=== PATIENT | male | born 1970 | race Caucasian/White ===

== ENCOUNTER → 2017-01-23 | Outpatient (CLI) | payer MEDICARE, OTHER ==
--- NOTE | 2017-01-23 14:59 | MR ---
EXAMINATION TYPE: MR cervical spine wo/w con DATE OF EXAM: 01/23/2017 2:42 PM COMPARISON: NONE HISTORY: other spondylosis w/radiculopathy CONTRAST: The patient was injected with 15 mL intravenous MultiHance gadolinium contrast. Multiplanar MultiSpin echo imaging of the cervical spine was performed. There is fusion hardware beginning at C3 level extending to T2 level. There is reversal of normal cer vical curvature identified. Overall appearance is stable. C2-C3: Fusion changes noted. 3 mm anterolisthesis of C2 on C3. Distortion and thinning of the cervica l spinal cord at the C2 level with the increased signal noted within the cervical spinal cord compati ble with myelopathy. No disc bulge/herniation or protrusion. No Canal stenosis. Foramina are patent bilaterally. C3-C4: Fusion changes noted. Normal alignment. No evidence for recurrent or residual disc herniation or protrusion. Right foraminal encroachment. C4-C5: Fusion changes noted. Normal alignment. No evidence for recurrent or residual disc herniation or protrusion. Bilateral foraminal encroachment noted. C5-C6: Fusion changes noted. Normal alignment. No evidence for recurrent or residual disc herniation or protrusion. Bilateral foraminal encroachment noted. C6-C7:Fusion changes noted. Normal alignment. No evidence for recurrent or residual disc herniation o r protrusion. Bilateral foraminal encroachment noted. C7-T1: Fusion changes noted. Normal alignment. No evidence for recurrent or residual disc herniation or protrusion. Bilateral foraminal encroachment noted. No cervical spine fracture. No pathologic enhancement. IMPRESSION: 1. Extensive postsurgical fusion and hardware extending from C3 through T2 with exaggerated cervical kyphosis. 2. Thinning of the cervical spinal cord at the C2 C2-3 level with increased signal noted within the s mick cord compatible with myelopathy.
== END | disposition home or self-care (01) ==
LOC: RADMRIMAIN 13:42
PROVIDERS: ATTEND Family Medicine
DX: M40.292 Other kyphosis, cervical region (principal); G95.89 Other specified diseases of spinal cord; Z98.1 Arthrodesis status
CPT/HCPCS: 72156; A9577

== ENCOUNTER → 2017-02-27 | Outpatient (CLI) | payer MEDICARE, OTHER ==
--- NOTE | 2017-02-27 20:25 | CT ---
EXAMINATION TYPE: CT cervical spine wo con DATE OF EXAM: 02/27/2017 COMPARISON: 05/23/2013 HISTORY: Severe neck pain with tingling and numbness in bilateral arms from the elbow down CT DLP: 770 mGycm Automated exposure control for dose reduction was used. TECHNIQUE: CT scan of the cervical spine is obtained without contrast, axial images are obtained, sa gittal and coronal reformatted images are also reviewed. FINDINGS: There is a plate with screws fusing anteriorly the cervical spine and upper thoracic spine from C3 to T2 vertebra. There is an upper thoracic kyphotic deformity. There is approximate 5 mm anterior sublu xation of C2 in relation to C3. There is mild multilevel facet arthropathy in the cervical spine. The re is slight loss of height of C2 vertebral body of 20%. The C6 vertebral body is not well defined. T here is no evidence of a paraspinal mass. The posterior elements appear intact. There is a spinal michael nosis at the C1 level that measures 7 mm. This relates to the see to 3 subluxation deformity and the compensatory extension at the craniocervical junction. The canal measures approximately 10 mm on the old exam. The spinal canal is difficult to visualize because of the metal artifact from the multileve l fusion surgery. IMPRESSION: There is mild anterior subluxation of C2 in relation to C3 with a kyphotic deformity that has progressed significantly compared to old CT scan. There is resultant spinal stenosis at C1 level . The canal has decreased from 10 mm to 7 mm. There is more flexion deformity at the C2-3 level yaz red to old exam. There is stable mild compression of the T2 vertebral body.
== END | disposition home or self-care (01) ==
LOC: RADCTMAIN 18:36
PROVIDERS: ATTEND Neurological Surgery
DX: M48.02 Spinal stenosis, cervical region (principal); S13.130A Subluxation of C2/C3 cervical vertebrae, initial encounter; M43.8X2 Other specified deforming dorsopathies, cervical region; M40.202 Unspecified kyphosis, cervical region; Z98.890 Other specified postprocedural states
CPT/HCPCS: 72125

== ENCOUNTER 2018-03-06 14:52 | Emergency (ER) | payer MEDICARE, OTHER ==
[2018-03-06 14:57] VITALS: BP 123/88; PULSE 82; RESP 18; TEMP 97.9
[2018-03-06] MEDS ORDERED: KETOROLAC 30 MG/ML 1 ML VIAL IM STA (16:09)
--- NOTE | 2018-03-06 16:22 | XR ---
EXAMINATION TYPE: XR cervical spine comp DATE OF EXAM: 03/06/2018 TECHNIQUE: Frontal, lateral, oblique, swimmers, and open mouth view of the cervical spine are obtaine d. HISTORY: Chronic neck pain with increased pain after lifting injury today. COMPARISON: None FINDINGS: There is reversal of the usual cervical lordosis with anterior fusion from C3 through appro ximately T1. There is osseous fusion of posterior elements. No acute fractures identified. There is m ild osseous demineralization of the cervical spine. Neural foramen appear grossly patent on the left with at least moderate neural foraminal narrowing at C3-C4, C4-C5, and C5-C6 on the right. The pre-ve rtebral soft tissue appears within normal limits. The C1-C2 articulation is within normal limits on the open mouth view. IMPRESSION: No acute fracture or dislocation is seen in the cervical spine. Reversal usual cervical lordosis, osseous demineralization, postsurgical changes, and osseous fusion of the cervical spine wi th multilevel right neural foraminal narrowing.
--- NOTE | 2018-03-06 16:45 | ED ---
General Adult HPI - General Chief complaint: Neck Pain/Injury Stated complaint: neck pain Time Seen by Provider: 03/06/18 15:34 Source: patient, RN notes reviewed Mode of arrival: ambulatory Limitations: no limitations - History of Present Illness Initial comments: 47-year-old male presents to the emergency department for a chief complaint of neck pain. Patient has chronic neck pain due to multiple surgeries but pain has worsened in the past 3 weeks. No acute injury. Patient states in the past hardware has been out of place and he would like an x-ray to make sure that it is in place. Patient states he is supposed to get another surgery but cannot quit smoking in the surgeon won't do it until he is no longer smoking. Patient states he takes Percocet for pain. Patient has no other complaints at this time including shortness of breath, chest pain, abdominal pain, nausea or vomiting, headache, or visual changes. - Related Data Home Medications Medication Instructions Recorded Confirmed Dextroamphetamine/Amphetamine 30 mg PO BID 09/28/14 03/30/16 [Adderall] Gabapentin [Neurontin] 300 mg PO TID 09/28/14 03/30/16 ALPRAZolam [Xanax] 0.5 mg PO Q8HR 11/24/14 03/30/16 Adefovir Dipivoxil [Hepsera] 10 mg PO DAILY 11/24/14 03/30/16 Brimonidine Tartrate [Alphagan P 1 drops RIGHT EYE Q8H 11/24/14 03/30/16 0.1% Ophth Soln] Dorzolamide 2% [Trusopt] 1 drops RIGHT EYE BID 11/24/14 03/30/16 Timolol Maleate/Pf [Timoptic 0.25% 1 each OP DAILY 11/24/14 03/30/16 Ocudose Drop] Citalopram Hydrobromide [CeleXA] 20 mg PO DAILY 01/19/15 03/30/16 oxyCODONE HCL 1 tab PO QID 03/30/16 03/30/16 Allergies Allergy/AdvReac Type Severity Reaction Status Date / Time cefaclor [From Ceclor] Allergy Swelling Verified 03/06/18 14:57 morphine Allergy Rash/Hives Verified 03/06/18 14:57 Review of Systems ROS Statement: Those systems with pertinent positive or pertinent negative responses have been documented in the HPI. ROS Other: All systems not noted in ROS Statement are negative. Past Medical History Past Medical History: No Reported History Additional Past Medical History / Comment(s): chronic neck and back pain hep b History of Any Multi-Drug Resistant Organisms: None Reported Past Surgical History: Back Surgery Additional Past Surgical History / Comment(s): neck surg x2, eye surgery, Past Psychological History: ADD/ADHD, Anxiety, Depression Smoking Status: Current every day smoker Past Alcohol Use History: Rare Past Drug Use History: Marijuana General Exam Limitations: no limitations General appearance: alert, in no apparent distress Head exam: Present: atraumatic, normocephalic, normal inspection Eye exam: Present: normal appearance ENT exam: Present: normal exam, normal oropharynx, mucous membranes moist, TM's normal bilaterally, normal external ear exam Neck exam: Present: tenderness (Mild tenderness to the cervical spine). Absent : meningismus, full ROM (Patient has limited range of motion of the neck. Patient has about 10 of flexion and extension. Patient has about 10 of rotation to the left and 10 of rotation to the right. ), lymphadenopathy, thyromegaly Respiratory exam: Present: normal lung sounds bilaterally. Absent: respiratory distress, wheezes, rales, rhonchi, stridor Cardiovascular Exam: Present: regular rate, normal rhythm, normal heart sounds. Absent: systolic murmur, diastolic murmur, rubs, gallop, clicks Back exam: Present: normal inspection. Absent: tenderness Neurological exam: Present: alert, oriented X3, CN II-XII intact Course Vital Signs 03/06/18 14:55 Temperature 97.9 F Pulse Rate 82 Respiratory 18 Rate Blood Pressure 123/88 O2 Sat by Pulse 99 Oximetry Medical Decision Making - Medical Decision Making 47-year-old male sent to the emergency department for a chief complaint of neck pain. Pain is chronic but is exacerbated in the past 3 weeks. Patient denies any acute injuries. Patient states he does need another surgery but the surgeon will not do it until he quit smoking which he is having difficulty doing. Patient takes Percocet for pain. Patient denies pain in the remainder of his back. On exam patient does have limited range of motion of the neck. Neuro exam intact. Patient has mild tenderness to the cervical spine. No acute fracture or dislocation is seen in the cervical spine. Reversal of the usual cervical lordosis, osseous demineralization, post cervical changes, and osseous fusion of the cervical spine with multilevel right neural foraminal narrowing. Patient was educated that his hardware is in place and he will need to follow- up with the orthopedic surgeon for this pain. Patient is aware that he can return to the emergency department if he has any worsening symptoms. O he will continue to take the Percocet and follow-up. therwise Disposition Clinical Impression: Chronic neck pain Disposition: HOME SELF-CARE Condition: Good Instructions: Neck Pain (ED) Additional Instructions: Please continue to take Percocet for pain. Please follow-up with orthopedic surgeon in one to 2 days. Please return to the emergency department if you have any worsening symptoms. Follow up with primary care provider as well. Is patient prescribed a controlled substance at d/c from ED?: No Referrals: Alexx Cuevas MD [Primary Care Provider] - 1-2 days Penny Davis DO [Doctor of Osteopathic Medicine] - 1-2 days Time of Disposition: 16:43
== END 2018-03-06 16:53 | disposition home or self-care (01) ==
LOC: EC 14:52
DX: G89.29 Other chronic pain (principal); M54.2 Cervicalgia; M99.71 Connective tissue and disc stenosis of intervertebral foramina of cervical region; M81.0 Age-related osteoporosis without current pathological fracture; M40.40 Postural lordosis, site unspecified; F32.9 Major depressive disorder, single episode, unspecified; F41.9 Anxiety disorder, unspecified; F90.9 Attention-deficit hyperactivity disorder, unspecified type; F17.200 Nicotine dependence, unspecified, uncomplicated; Z79.891 Long term (current) use of opiate analgesic; Z79.899 Other long term (current) drug therapy; Z88.1 Allergy status to other antibiotic agents; Z88.5 Allergy status to narcotic agent; Z86.19 Personal history of other infectious and parasitic diseases; Z98.890 Other specified postprocedural states
CPT/HCPCS: 72050; 99283; 96372; J1885